=== PATIENT | female | born 1930 | race Caucasian/White ===

== ENCOUNTER 2016-10-27 19:58 | Observation (INO) | payer OTHER, MEDICARE ==
[~2016-10-27] VITALS: Ht 162.6 cm; Wt 56.9 kg
[2016-10-27 21:02] LABS: EOSINOPHIL COUNT 0.1 K/uL (0-0.3); HEMATOCRIT 43.9 % (36.0-46.0); IMMATURE GRANULOCYTE (%) 1.2 % (0.0-0.7); IMMATURE GRANULOCYTE COUNT 0.1 K/uL; INSTRUMENT ABS NEUTROPHIL CT 5.3 K/uL; LYMPHOCYTE COUNT 1.3 K/uL (1.0-2.8); MCH 30.8 PG (29.0-34.0); MCHC 33.7 G/DL (30.0-36.0); MCV 91.5 FL (83-99); MEAN PLAT.VOLUME 9.6 uM^3 (9.5-12.4); MONOCYTE (%) 13.2 % (3-12); NEUTROPHIL (%) 67.8 % (45-76); NEUTROPHIL COUNT 5.3 K/uL (1.8-6.4); PLATELET COUNT 266 K/uL (156-360); WHITE BLOOD COUNT 7.7 K/uL (4.1-10.2)
[2016-10-27 21:18] LABS: CHLORIDE 101 mEq/L (99-109); POTASSIUM 3.9 mEq/L (3.7-5.4); SODIUM 135 mEq/L (136-147)
[2016-10-27 21:20] LABS: GLUCOSE 94 mg/dL (70-99)
[2016-10-27 21:21] LABS: ANION GAP 10 MEQ/L (2-14)
[2016-10-27 21:22] LABS: TOTAL BILIRUBIN 0.7 mg/dL (0.0-1.0)
[2016-10-27 21:23] LABS: ALKALINE PHOSPHATASE 47 IU/L (3-129)
[2016-10-27 21:24] LABS: GFR ESTIMATE (CALCULATED) > 59 mL/min/
[2016-10-27 21:25] LABS: UREA NITROGEN (BUN) 12 mg/dL (9-23)
[2016-10-27 21:29] LABS: TROP-I INTERPRETATION NEGATIVE; TROPONIN-I < 0.01 ng/mL (0.0-0.30)
[2016-10-27 21:49] LABS: ADD MIUA? YES; BILIRUBIN NEGATIVE; BLOOD SMALL; COLOR STRAW ((YELLOW)); GLUCOSE (STRIP) NEGATIVE; KETONES NEGATIVE; LEUKOCYTES TRACE; NITRITE NEGATIVE; PROTEIN (STRIP) NEGATIVE; SPECIFIC GRAVITY 1.005 (1.000-1.030); UROBILINOGEN 0.2 MG/DL (0.2-1.0)
[2016-10-27 21:50] LABS: SAMPLE HEMOLYSIS CHECK 0; SAMPLE ICTERIC CHECK 0; SAMPLE LIPEMIA CHECK 0
[2016-10-27 21:56] LABS: HDL CHOLESTEROL 64 MG/DL (Desirable>=50); LDL CHOLESTEROL 142 mg/dL (Desirable<100); NON-HDL CHOLESTEROL 171 mg/dL (Desirable<160); TOTAL CHOLESTEROL 235 mg/dL (Desirable<200); TRIGLYCERIDES 145 MG/DL (Normal: <150)
[2016-10-27 21:57] LABS: BACTERIA 2+ /HPF; EPITHELIAL CELLS RARE /HPF; MUCUS NONE SEEN /LPF; RED BLOOD CELLS 0-5 /HPF (0-5); UCUL ADDED? YES; WHITE BLOOD CELLS 0-5 /HPF (0-5)
[2016-10-27 22:38] LABS: Estimated Average Glucose 105 mg/dL (70-123); HEMOGLOBIN A1c (GLYCOHEMOGLOB) 5.3 % HGB (Below 5.7)
[2016-10-28 00:42] VITALS: BP 138/67
[2016-10-28 01:06] LABS: TROP-I INTERPRETATION NEGATIVE; TROPONIN-I 0.01 ng/mL (0.0-0.30)
[2016-10-28 05:09] VITALS: BP 120/57
[2016-10-28 07:06] LABS: HEMATOCRIT 45.2 % (36.0-46.0); MCH 30.5 PG (29.0-34.0); MCHC 33.2 G/DL (30.0-36.0); MCV 91.9 FL (83-99); MEAN PLAT.VOLUME 9.4 uM^3 (9.5-12.4); PLATELET COUNT 250 K/uL (156-360); RBC DIS.WIDTH-CV 13.2 % (11.8-14.6); RBC DIS.WIDTH-SD 44.8 % (39-53); RED BLOOD COUNT 4.92 M/uL (3.80-5.20)
[2016-10-28 07:22] LABS: TROP-I INTERPRETATION NEGATIVE; TROPONIN-I < 0.01 ng/mL (0.0-0.30)
[2016-10-28 07:35] LABS: ANION GAP 9 MEQ/L (2-14); CHLORIDE 102 MEQ/L (99-109); GFR ESTIMATE (CALCULATED) > 59 mL/min/; GLUCOSE 95 mg/dL (70-99); POTASSIUM 4.3 MEQ/L (3.7-5.4); SAMPLE HEMOLYSIS CHECK 0; SAMPLE ICTERIC CHECK 0; SAMPLE LIPEMIA CHECK 0; SODIUM 136 MEQ/L (136-147); UREA NITROGEN (BUN) 9 mg/dL (9-23)
[2016-10-28 07:40] VITALS: BP 120/59
[2016-10-28] MEDS ORDERED: CEFTIN500 MG PO (09:05)
== END 2016-10-28 11:20 | disposition home or self-care (01) ==
LOC: EME 19:58 → EDOF 22:50 → 5WEST 22:50 → EDOF 22:50 → ENRESERV 22:50 → 5WEST 10-28 00:21
PROVIDERS: Emergency Medicine; Hospitalist
DX: N39.0 Urinary tract infection, site not specified (principal); F03.90 Unspecified dementia, unspecified severity, without behavioral disturbance, psychotic disturbance, mood disturbance, and anxiety; R51 Headache; R13.10 Dysphagia, unspecified; R26.2 Difficulty in walking, not elsewhere classified
CPT/HCPCS: 70450; 71020; 80048; 80053; 80061; 81003; 83036; 84484; 85025; 85027; 87077; 87086 GA; 87186; 93005; 99281; 99285; G0378; J0696; J1644; J7050